=== PATIENT | male | born 1985 | race Caucasian/White ===

== ENCOUNTER 2017-11-12 23:48 | Emergency (ER) | payer BC, OTHER ==
[~2017-11-12] VITALS: Ht 167.6 cm; Wt 68.0 kg
[~2017-11-12 23:48] MED LIST: NORFLEX100 MG PO
[2017-11-12] MEDS ORDERED: KEFLEX 500 MG E2 CAP PO (23:53)
[2017-11-13] MEDS ORDERED: FLOMAX0.4 MG PO (01:31)
[2017-11-13] MEDS ORDERED: AUGMENTIN 875875 MG PO (01:31)
[2017-11-13 01:49] VITALS: BP 128/78
== END 2017-11-13 01:55 | disposition home or self-care (01) ==
LOC: ED 23:48
DX: S31.134A Puncture wound of abdominal wall without foreign body, left lower quadrant without penetration into peritoneal cavity, initial encounter (principal); N20.0 Calculus of kidney; F17.200 Nicotine dependence, unspecified, uncomplicated; Z98.890 Other specified postprocedural states; W29.4XXA Contact with nail gun, initial encounter; Y93.89 Activity, other specified; Y92.69 Other specified industrial and construction area as the place of occurrence of the external cause; Y99.9 Unspecified external cause status

== ENCOUNTER 2018-01-01 12:15 | Emergency (ER) | payer BC, OTHER ==
[~2018-01-01] VITALS: Ht 167.6 cm; Wt 68.0 kg
[~2018-01-01 12:15] MED LIST changes: +AUGMENTIN 875875 MG PO; +FLOMAX0.4 MG PO; +KEFLEX 500 MG E2 CAP PO
[2018-01-01 12:16] VITALS: BP 124/82
[2018-01-01] MEDS ORDERED: PREDNISONE20 M1 PO (12:39)
[2018-01-01] MEDS ORDERED: PROAIR HFA8.5 GM INH (12:39)
[2018-01-01] MEDS ORDERED: AVPAK AZITHROM250 MG PO (12:39)
[2018-01-01] MEDS ORDERED: FLONASE ALLERG9.9 ML NAS (12:39)
[2018-01-01] MEDS ORDERED: ROBITUSSIN DM 101 OZ PO (12:39)
== END 2018-01-01 12:43 | disposition home or self-care (01) ==
LOC: ED 12:15
DX: J06.9 Acute upper respiratory infection, unspecified (principal); J20.9 Acute bronchitis, unspecified; F17.200 Nicotine dependence, unspecified, uncomplicated; Z91.040 Latex allergy status